=== PATIENT | male | born 1990 | race Caucasian/White ===

== ENCOUNTER 2020-02-20 08:36 | Emergency (ER) | payer SELFPAY ==
[~2020-02-20] VITALS: Ht 182.9 cm; Wt 81.8 kg
[2020-02-20 08:50] VITALS: BP 110/71; TEMP 97.8
[2020-02-20 09:28] LABS: COLLECTION METHOD CLEAN CATCH
[2020-02-20 09:49] LABS: AMORPHOUS CRYSTAL Present /uL; MUCOUS Present /lpf; PH 6 (5-8); SQUAMOUS EPITHELIAL 0-2 /hpf; URINE APPEARANCE Turbid; URINE BACTERIA Rare /hpf; URINE BILIRUBIN Positive (NEGATIVE); URINE BLOOD 1+ (NEGATIVE); URINE COLOR Amber; URINE GLUCOSE Negative (NEGATIVE); URINE KETONE Trace (NEGATIVE); URINE LEUKOCYTE ESTERASE 1+ (NEGATIVE); URINE NITRATE Negative (NEGATIVE); URINE PROTEIN(semi-quant) 2+ (NEGATIVE); URINE RBC >50 /hpf
[2020-02-20] MEDS ORDERED: DOXYCYCLINE 10100 MG PO (11:07)
[2020-02-20] MEDS ORDERED: NORCO 325 MG-51 TAB PO (11:07)
[2020-02-20 11:41] VITALS: PULSE 78
== END 2020-02-20 11:45 | disposition home or self-care (01) ==
LOC: COL.ER 08:36
PROVIDERS: Emergency Medicine
DX: N45.1 Epididymitis (principal); F17.210 Nicotine dependence, cigarettes, uncomplicated
CPT/HCPCS: J0696; J1170